=== PATIENT | male | born 1950 | race Caucasian/White ===

== ENCOUNTER 2020-12-21 11:34 | Outpatient (CLI) | payer MEDICARE, BC, SELFPAY ==
--- NOTE | 2020-12-21 11:15 | DI.RAD_ITS ---
Exam(s) XR SHOULDER LT COMPLETE 2+V EXAM: XR SHOULDER LT COMPLETE 2+V CLINICAL HISTORY: left shoulder pain. TECHNIQUE: 2D digital imaging was performed of the left shoulder. Two images were obtained. AP and axillary views were obtained. COMPARISON: No exams were available for comparison FINDINGS: BONES: No acute fracture is present. No bony destructive lesion is seen. JOINTS: No dislocation present. Degenerative changes are seen at the glenohumeral joint with joint sp aretha narrowing, subchondral cysts and hypertrophic changes. Mild degenerative changes are seen at the acromioclavicular joint. SOFT TISSUE: Normal. IMPRESSION: Degenerative changes of the left shoulder. DATA REPOSITORY: RADIATION DOSE DELIVERED:
== END 2020-12-21 11:35 | disposition home or self-care (01) ==
LOC: DIORS 11:34
PROVIDERS: PCP Family Medicine; Referring Provider Family Medicine; Visit Provider Student in an Organized Health Care Education/Training Program
DX: M25.512 Pain in left shoulder (principal); M19.012 Primary osteoarthritis, left shoulder; M75.102 Unspecified rotator cuff tear or rupture of left shoulder, not specified as traumatic
CPT/HCPCS: 99204; 99214; 73030

== ENCOUNTER 2021-01-18 00:50 | Outpatient (CLI) | payer MEDICARE, BC, SELFPAY ==
--- NOTE | 2021-01-18 08:00 | DI.CT_ITS ---
Exam(s) CT UPPER EXTREMITY LT WO EXAM: CT UPPER EXTREMITY LT WO CLINICAL HISTORY: TSA planning,LT ROTATOR CUFF TEAR,ARTHRITIS LT GLENOHUMERAL JOINT,M75.102. TECHNIQUE: Imaging Protocol: Axial computed tomography images with coronal and sagittal reformatted images were created and reviewed. CONTRAST MATERIAL: Noncontrast COMPARISON: CR RIGHT RIBS TO INCLUDE CXR from 04/26/2010 CR RIGHT RIBS TO INCLUDE CXR from 04/26/2010 CR XR SHOULDER LT COMPLETE 2+V from 12/21/2020 CR XR SHOULDER LT COMPLETE 2+V from 12/21/2020 FINDINGS: There are severe degenerative changes at the glenohumeral joint. There is severe joint space narrowi ng. There is prominent periarticular spurring. Calcifications are seen in the subcoracoid bursa. T here are multiple subchondral cysts in the superior humeral head. There is no significant muscle atr ophy. AC joint minimal degenerative changes. IMPRESSION: Severe degenerative changes of the glenohumeral joint. RADIATION DOSE DELIVERED: 773.82mGy.cm Total DLP DATA REPOSITORY: All CT scans at this facility are submitted to the National Radiology Data Registry (NRDR) Dose Index Registry (DIR) with the [employer] ([employer]). RADIATION OPTIMIZATION: All CT scans at this facility use at least one of these dose optimization te chniques: automated exposure control; mA and/or kV adjustment per patient size (includes targeted exa ms where dose is matched to clinical indication); or iterative reconstruction.
== END 2021-01-18 01:10 ==
PROVIDERS: PCP Family Medicine; Visit Provider Student in an Organized Health Care Education/Training Program
DX: M19.012 Primary osteoarthritis, left shoulder (principal)
CPT/HCPCS: 73200

== ENCOUNTER 2021-01-20 01:10 | Outpatient (CLI) | payer MEDICARE, BC, SELFPAY ==
--- NOTE | 2021-01-20 09:15 | DI.MRI_ITS ---
Exam(s) MR UPPER JOINT LT WO EXAM: MR UPPER JOINT LT WO CLINICAL HISTORY: RC weakness,TSA PLANNING, LT ROTATOR CUFF TEAR,ARTHRITIS LT GLENOHUMERAL TECHNIQUE: Multiplanar multisequence MRI of the shoulder was performed. COMPARISON: CR XR SHOULDER LT COMPLETE 2+V from 12/21/2020 CR XR SHOULDER LT COMPLETE 2+V from 12/21/[address] UPPER EXTREMITY LT WO from 01/18/[address] UPPER EXTREMITY LT WO from 01/18/2021 FINDINGS: MARROW:No evidence of fracture, Hill-Sachs deformity, nor bony Bankart lesion. No ominous osseous le sions. Degenerative subarticular cysts are noted in the superior aspect head . prominent sarmiento-type osteophyte is noted inferior surface of humeral head. ROTATOR CUFF MECHANISM: AC JOINT/ACROMIUM: Mild degenerative changes.. There is no evidence of os acromiale. Supraspinatus: Mild increased signal. No tear. No atrophy. Infraspinatus: Intact. No evidence of tear nor muscle atrophy. Teres Minor: Intact. No evidence of tear nor muscle atrophy. Subscapularis/anterior cuff: There is intrasubstance fluid within the multipennate insertional fibers of the subscapularis on the lesser tuberosity but without high-grade tear. May constitute partial t earing. No prominent atrophy. BICEPS TENDON: The biceps tendon is situated within the intertubercular groove. It is not torn at th is level. However, there is signal abnormality at the insertional aspect of the biceps on the superi or labrum. Mild fluid in the sheath of the biceps within the intertubercular groove. LABRUM: There is abnormal signal in the superior labrum at and posterior to the biceps attachment sit e. Also abnormal signal in the posterior labrum and inferior labrum and anterior labrum. No evidenc e of paralabral cyst. The inferior glenohumeral ligament appears intact GLENOHUMERAL JOINT: Small joint effusion. There are significant osteoarthritic degenerative changes in the humeral head and osseous glenoid. Degenerative subarticular cysts are noted in the humeral he ad. Moderate degenerative changes in the AC joint. QUADRILATERAL SPACE: No evidence of mass in the region of the axillary nerve and dorsal circumflex hu meral vessels. Visualized triceps muscle at this level appears unremarkable. IMPRESSION: 1. 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 Multiple degenerative cysts are seen in the humeral head. 2. There is multilevel labral tearing but no paralabral cyst. Biceps tendon itself is not torn nor d isplaced. 3. Some fluid is seen within the multipennate insertional fibers of the anterior cuff-subscapularis b ut no full-thickness tear. Other components of the rotator cuff mechanism including the supraspinatu s appear intact. Also no muscle atrophy. DATA REPOSITORY:
== END 2021-01-20 01:30 ==
PROVIDERS: PCP Family Medicine; Visit Provider Student in an Organized Health Care Education/Training Program
DX: M19.012 Primary osteoarthritis, left shoulder (principal); M75.102 Unspecified rotator cuff tear or rupture of left shoulder, not specified as traumatic; M25.712 Osteophyte, left shoulder
CPT/HCPCS: 73221

== ENCOUNTER → 2021-01-25 13:37 | Outpatient (BNVA) | payer MEDICARE, BC, SELFPAY | PROVIDERS: PCP Family Medicine; Referring Provider Family Medicine; Visit Provider Student in an Organized Health Care Education/Training Program | DX: M19.012 Primary osteoarthritis, left shoulder (principal); M75.102 Unspecified rotator cuff tear or rupture of left shoulder, not specified as traumatic | CPT/HCPCS: 99213 ==

== ENCOUNTER → 2023-02-13 12:54 | Outpatient (BNVA) | payer MEDICARE, SELFPAY | PROVIDERS: PCP Family Medicine; Referring Provider Family Medicine; Visit Provider Student in an Organized Health Care Education/Training Program | DX: M19.012 Primary osteoarthritis, left shoulder (principal) | CPT/HCPCS: 20610; J1030 ==

== ENCOUNTER 2023-07-23 10:16 | Outpatient (RCR) | payer MEDICARE, SELFPAY | END 2023-07-24 23:59 | disposition home or self-care (01) | LOC: CR 10:16 | PROVIDERS: PCP Family Medicine; Visit Provider Internal Medicine Cardiovascular Disease | DX: Z95.2 Presence of prosthetic heart valve (principal); Z51.89 Encounter for other specified aftercare | CPT/HCPCS: S9472 ==

== ENCOUNTER 2023-08-24 09:24 | Outpatient (RCR) | payer MEDICARE, SELFPAY | END 2023-08-24 23:59 | disposition home or self-care (01) | LOC: CR 09:24 | PROVIDERS: PCP Family Medicine; Visit Provider Internal Medicine Cardiovascular Disease | DX: I35.0 Nonrheumatic aortic (valve) stenosis (principal); Z95.2 Presence of prosthetic heart valve; Z51.89 Encounter for other specified aftercare | CPT/HCPCS: S9472 ==

== ENCOUNTER 2023-09-07 09:55 | Outpatient (RCR) | payer MEDICARE, SELFPAY | END 2023-09-23 23:59 | disposition home or self-care (01) | LOC: CR 09:55 | PROVIDERS: PCP Family Medicine; Visit Provider Internal Medicine Cardiovascular Disease | DX: Z95.2 Presence of prosthetic heart valve (principal); Z98.890 Other specified postprocedural states | CPT/HCPCS: S9472 ==

== ENCOUNTER 2023-10-24 09:00 | Outpatient (RCR) | payer MEDICARE, SELFPAY | END 2023-10-24 23:59 | disposition home or self-care (01) | LOC: CR 09:00 | PROVIDERS: PCP Family Medicine; Visit Provider Internal Medicine Cardiovascular Disease | DX: Z95.2 Presence of prosthetic heart valve (principal) | CPT/HCPCS: S9472 ==

== ENCOUNTER 2023-11-23 09:35 | Outpatient (RCR) | payer MEDICARE, SELFPAY | END 2023-11-24 23:59 | disposition home or self-care (01) | LOC: CR 09:35 | PROVIDERS: PCP Family Medicine; Visit Provider Internal Medicine Cardiovascular Disease | DX: Z95.2 Presence of prosthetic heart valve (principal); Z51.89 Encounter for other specified aftercare | CPT/HCPCS: S9472 ==

== ENCOUNTER 2023-11-28 09:00 | Outpatient (RCR) | payer MEDICARE, SELFPAY | END 2023-12-24 23:59 | disposition home or self-care (01) | LOC: CR 09:00 | PROVIDERS: PCP Family Medicine; Visit Provider Internal Medicine Cardiovascular Disease | DX: Z95.2 Presence of prosthetic heart valve (principal); Z51.89 Encounter for other specified aftercare | CPT/HCPCS: S9472 ==